=== PATIENT | male | born 1965 | race Caucasian/White ===

== ENCOUNTER 2019-10-09 08:27 | Emergency (ER) | payer BC, SELFPAY ==
[2019-10-09 08:37] VITALS: BP 161/108; PULSE 93; RESP 18; TEMP 36.2; O2SAT 100
--- NOTE | 2019-10-09 08:54 | ED.WOUNDLAC ---
HPI - Wound/Laceration General Chief Complaint: Wound/Laceration Stated Complaint: Left Wrist Laceration Time Seen by Provider: 10/09/19 08:42 History of Present Illness HPI narrative: Patient presents with his for laceration on his left forearm. A kylah jar fell and cut his lower left forearm. Bleeding is controlled. He does not remember his last tetanus shot. He says the pain is minimal. He has not been sick recently. He does not smoke cigarettes, but he does drink alcohol, and smokes marijuana. He has history of hypertension. Surgery history includes circumcision. Onset (ago): hour(s) Extremity Location: Left: arm Place: home Patient tetanus UTD: No Context: accidental Associated symptoms: none Related Data Home Medications Medication Instructions Recorded Confirmed escitalopram oxalate 10 mg tablet 10 mg PO DAILY 09/09/19 Allergies Allergy/AdvReac Type Severity Reaction Status Date / Time peanut Allergy Mild Unknown Verified 09/09/19 10:57 Review of Systems Review of Systems: Narrative: CONSTITUTIONAL: Denies fever, chills, or sweats. EYES: Denies visual changes, redness, or discharge. ENT: Denies rhinorrhea, congestion, sore throat, or otalgia. CARDIOVASCULAR: Denies chest pain, palpitations, or edema. RESPIRATORY: Denies cough or dyspnea. GASTROINTESTINAL: Denies abdominal pain, nausea, vomiting, or diarrhea. GENITOURINARY: Denies dysuria or hematuria. SKIN: Denies rash or itching. MUSCULOSKELETAL: Denies back pain, but he does have multiple joint pain. NEUROLOGIC: Denies headache, numbness, or weakness. [facility] Past Medical History Medical History (Updated 10/09/19 @ 08:57 by Coco Randle MD) Hypertension Laceration Surgical History Surgical History History of circumcision Family History Family History (Updated 09/23/15 @ 23:19 by DOCTOR UNKNOWN) Mother Family history of chronic obstructive pulmonary disease, Onset Age: 55 Family history of malignant neoplasm of breast in first degree relative, Onset Age: 55 Father Family history of type 2 diabetes mellitus, Onset Age: 55 Other Diabetes mellitus Social History Social History (Updated 10/09/19 @ 08:57 by Coco Randle MD) Smoking status: Never smoker Second hand tobacco smoke exposure: No Alcohol intake: current Substance use: current Substance use type: marijuana Living arrangements: with family Gender identity (if verbalized by the patient): Male Exam Narrative: Exam Narrative: GENERAL: Well-appearing, well-nourished, and in no acute distress. HEAD: Normocephalic, atraumatic. EYES: PERRLA and EOMI. ENT: Nares clear, no rhinorrhea or epistaxis. Mucous membranes moist. NECK: Supple. CHEST: Clear to auscultation. No respiratory distress. HEART: Regular rate and rhythm. No murmur heard. Normal peripheral pulses. ABDOMEN: Soft, nontender, nondistended, normal active bowel sounds. EXTREMITIES: Normal range of motion. No edema. Left forearm has a 2 cm curved laceration on the lower forearm. SKIN: Warm, dry, no rash. NEURO: No focal deficits. Alert and oriented x3. PSYCH: Normal mood and affect. Course Vital Signs Vital signs: Vital Signs Temperature 97.2 F L 10/09/19 08:37 Pulse Rate 93 10/09/19 08:37 Respiratory Rate 18 10/09/19 08:37 Blood Pressure 161/108 H 10/09/19 08:37 Pulse Oximetry 100 10/09/19 08:37 Temperature 97.2 F L 10/09/19 08:37 Pulse Rate 93 10/09/19 08:37 Respiratory Rate 18 10/09/19 08:37 Blood Pressure 161/108 H 10/09/19 08:37 Pulse Oximetry 100 10/09/19 08:37 Procedures Laceration Laceration 1: Date: 10/09/19 Time: 08:58 Site: upper extremity Side (If applicable): left Size (cm): 2 Description: other (Curved) Pre-repair: irrigated ====== Skin Level ====== Skin layer closed with: bhaskar (4) ====== Subcutaneous La
[2019-10-09] MEDS: TETANUS,DIPHTHERIA,AC PERTUSSIS ADULT (0.5 ML) BOOSTRIX IM (09:06)
[2019-10-09 09:13] VITALS: BP 154/92; PULSE 75; RESP 16; O2SAT 100
== END 2019-10-09 09:14 | disposition home or self-care (01) ==
PROVIDERS: Emergency Provider Emergency Medicine; PCP Physician Assistant
DX: S51.812A Laceration without foreign body of left forearm, initial encounter (principal); I10 Essential (primary) hypertension; W25.XXXA Contact with sharp glass, initial encounter; W20.8XXA Other cause of strike by thrown, projected or falling object, initial encounter; Z23 Encounter for immunization
CPT/HCPCS: 12001; 90471; 90715; 99282

== ENCOUNTER 2019-11-07 04:24 | Emergency (ER) | payer BC, SELFPAY ==
--- NOTE | ~2019-11-07 | XR_ITS ---
[[id number] ] INDICATION: Right lower rib pain after fall TECHNIQUE: Frontal projection of the upper right ribs, frontal projection of the lower right ribs, ob lique projection of all the right ribs, frontal inspiratory chest x-ray for interpretation. FINDINGS: There are nondisplaced right 10th and 11th rib fractures. There are no soft tissue abnorma lity seen. The lungs are clear. IMPRESSION: 1: Acute nondisplaced right 10th and 11th rib fractures.. Reviewed, dictated and finalized at location A.
--- NOTE | 2019-11-07 04:28 | ED.CHESTPAIN ---
HPI - Chest Pain General Chief Complaint: Unspecified Stated Complaint: rib pain Time Seen by Provider: 11/07/19 04:26 History of Present Illness HPI narrative: Fell from standing on a bench and struck his right side on a metal shelf. Had pain instantly, but was able to fall asleep. Awoke from sleep later with severe pain in the right lateral ribs. Pain with breathing, coughing, moving. He did not try anything for the pain. Related Data Home Medications Medication Instructions Recorded Confirmed escitalopram oxalate 10 mg tablet 10 mg PO DAILY 09/09/19 Allergies Allergy/AdvReac Type Severity Reaction Status Date / Time peanut Allergy Mild Unknown Verified 09/09/19 10:57 Review of Systems Review of Systems: All systems reviewed & are unremarkable except as noted in HPI and below PMFSH Past Medical History Medical History Hypertension Laceration Surgical History Surgical History History of circumcision Family History Family History Mother Family history of chronic obstructive pulmonary disease, Onset Age: 55 Family history of malignant neoplasm of breast in first degree relative, Onset Age: 55 Father Family history of type 2 diabetes mellitus, Onset Age: 55 Other Diabetes mellitus Social History Social History Smoking status: Never smoker Second hand tobacco smoke exposure: No Alcohol intake: current Substance use: current Substance use type: marijuana Gender identity (if verbalized by the patient): Male Exam Const: General: healthy appearing and alert Orientation/consciousness: patient oriented x3 Other: Obvious discomfort HENMT: Head: normal to inspection Chest: Chest palpation & inspection: tenderness rib (right inferior lateral) Resp: Effort & Inspection: normal respiratory effort Auscultation: clear to auscultation bilaterally Cardio: Rate: regular rate Rhythm: regular rhythm Skin: General skin exam: normal color Wounds: no wounds Neuro: General: patient oriented x3, moves all extremities and CN's II-XI intact bilaterally Speech: normal speech Extrem: General: normal to inspection Course Vital Signs Vital signs: Vital Signs Temperature 36.2 C L 11/07/19 04:32 Pulse Rate 78 11/07/19 04:32 Respiratory Rate 16 11/07/19 04:32 Blood Pressure 140/98 H 11/07/19 04:32 Temperature 36.2 C L 11/07/19 04:32 Pulse Rate 78 11/07/19 04:32 Respiratory Rate 16 11/07/19 04:32 Blood Pressure 140/98 H 11/07/19 04:32 MDM - Chest Pain Differential Diagnosis Differential diagnosis: Likely fracture of rib Medical Records Data Attestation: I reviewed the patient's medical records. Imaging Data Attestation: I personally reviewed and interpreted this imaging study as follows: My impression: No displaced rib fracture. Possible nondisplaced fracture Discharge Plan Discharge Clinical Impression: Rib contusion Patient Disposition: Home, Self-Care Condition: Stable Instructions: Rib Contusion (ED) Prescriptions: New hydrocodone-acetaminophen [[place]] 5-325 mg tablet 1 tablet PO Q6H PRN (Reason: pain) Qty: 10 RF: 0 ibuprofen 600 mg tablet 600 mg PO QID PRN (Reason: pain) Qty: 30 RF: 0 No Action escitalopram oxalate 10 mg tablet 10 mg PO DAILY RF: 0 losartan 50 mg tablet 50 mg PO DAILY Qty: 90 RF: 1 ibuprofen 800 mg tablet See Rx Instructions .ROUTE .COMPLEX Qty: 60 RF: 1 albuterol sulfate [ProAir HFA] 90 mcg/actuation HFA aerosol inhaler 2 puff INHALATION Q4-6H PRN (Reason: shortness of breath or wheezing) Qty: 8.5 RF: 1 Follow-up/Referrals: Magdaleno Cochran PA-C [Primary Care Provider] - Discharge Date/Time: 11/07/19 07:15
[2019-11-07 04:32] VITALS: BP 140/98; PULSE 78; RESP 16; TEMP 36.2
[2019-11-07] MEDS: KETOROLAC (*BKC) 60 MG/2 ML VIAL IM (05:06)
== END 2019-11-07 07:15 | disposition home or self-care (01) ==
PROVIDERS: Emergency Provider Emergency Medicine; PCP Physician Assistant
DX: S20.211A Contusion of right front wall of thorax, initial encounter (principal); W17.89XA Other fall from one level to another, initial encounter; I10 Essential (primary) hypertension
CPT/HCPCS: 71101; 96372; 99283; A9270; J1885

== ENCOUNTER 2020-09-06 08:56 | Outpatient (CLI) | payer BC, SELFPAY ==
--- NOTE | 2020-09-06 11:00 | NEURO_ITS ---
Impression: # Complains of pain in right hand. # No Carpal Tunnel Syndrome or ulnar neuropathy. # Normal needle/EMG exam including deltoid, triceps and biceps. # Clinical correlation recommended. Nerve Conduction Studies Anti Sensory Summary Table Stim Site NR Peak (ms) P-T Amp (?V) Site1 Site2 Delta-P (ms) Dist (cm) Marco A (m/s) Left Median Anti Sensory (2-3nd Digit) Wrist 3.8 28.2 Wrist 2-3nd Digit 3.8 14.0 37 Wrist 3.7 34.4 Wrist 2-3nd Digit 3.8 14.0 37 Right Median Anti Sensory (2-3nd Digit) Wrist 3.5 34.4 Wrist 2-3nd Digit 3.5 14.0 40 Wrist 3.5 34.4 Wrist 2-3nd Digit 3.5 14.0 40 Left Radial Anti Sensory (Base 1st Digit) Wrist 2.4 16.3 Wrist Base 1st Digit 2.4 0.0 Right Radial Anti Sensory (Base 1st Digit) Wrist 2.5 12.2 Wrist Base 1st Digit 2.5 0.0 Left Ulnar Anti Sensory (5th Digit) Wrist 2.9 50.2 Wrist 5th Digit 2.9 14.0 48 Right Ulnar Anti Sensory (5th Digit) Wrist 3.2 12.6 Wrist 5th Digit 3.2 14.0 44 Motor Summary Table Stim Site NR Onset (ms) O-P Amp (mV) Site1 Site2 Delta-0 (ms) Dist (cm) Marco A (m/s) Left Median Motor (Abd Poll Brev) Wrist 3.7 4.6 Elbow Wrist 5.4 28.0 52 Elbow 9.1 6.1 Right Median Motor (Abd Poll Brev) Wrist 3.7 2.5 Elbow Wrist 5.4 28.0 52 Elbow 9.1 4.6 Left Ulnar Motor (Abd Dig Minimi) Wrist 2.5 4.0 A Elbow Wrist 5.2 28.0 54 A Elbow 7.7 3.2 Right Ulnar Motor (Abd Dig Minimi) Wrist 2.8 4.5 A Elbow Wrist 5.2 29.0 56 A Elbow 8.0 3.3 F Wave Studies NR F-Lat (ms) L-R F-Lat (ms) Left Median (Mrkrs) (Abd Poll Brev) 30.98 0.32 Right Median (Mrkrs) (Abd Poll Brev) 30.67 0.32 Left Ulnar (Mrkrs) (Abd Dig Min) 30.61 0.33 Right Ulnar (Mrkrs) (Abd Dig Min) 30.28 0.33 EMG Side Muscle Nerve Root Ins Act Fibs Amp Dur Recrt Comment Right 1stDorInt Ulnar C8-T1 Nml Nml Nml Nml Nml Right Ext Indicis Radial (Post Int) C7-8 Nml Nml Nml Nml Nml Right Ext Digitorum Radial (Post Int) C7-8 Nml Nml Nml Nml Nml Right BrachioRad Radial C5-6 Nml Nml Nml Nml Nml Right PronatorTeres Median C6-7 Nml Nml Nml Nml Nml Right Abd Poll Brev Median C8-T1 Nml Nml Nml Nml Nml Left 1stDorInt Ulnar C8-T1 Nml Nml Nml Nml Nml Left Ext Indicis Radial (Post Int) C7-8 Nml Nml Nml Nml Nml Left Ext Digitorum Radial (Post Int) C7-8 Nml Nml Nml Nml Nml Left BrachioRad Radial C5-6 Nml Nml Nml Nml Nml Left PronatorTeres Median C6-7 Nml Nml Nml Nml Nml Left Abd Poll Brev Median C8-T1 Nml Nml Nml Nml Nml Right Biceps Musculocut C5-6 Nml Nml Nml Nml Nml Right Triceps Radial C6-7-8 Nml Nml Nml Nml Nml Right Deltoid Axillary C5-6 Nml Nml Nml Nml Nml Left Biceps Musculocut C5-6 Nml Nml Nml Nml Nml Left Triceps Radial C6-7-8 Nml Nml Nml Nml Nml Left Deltoid Axillary C5-6 Nml Nml Nml Nml Nml MTDD
== END 2020-09-06 08:57 | disposition home or self-care (01) ==
LOC: ANHNEURO 08:57
PROVIDERS: PCP Internal Medicine; Visit Provider Physician Assistant
DX: M79.641 Pain in right hand (principal); M79.642 Pain in left hand
CPT/HCPCS: 95886; 95911

== ENCOUNTER 2021-04-10 08:13 | Outpatient (CLI) | payer BC, SELFPAY | END 2021-04-10 08:14 | disposition home or self-care (01) | PROVIDERS: PCP Physician Assistant; Visit Provider Physician Assistant | DX: H90.6 Mixed conductive and sensorineural hearing loss, bilateral (principal) | CPT/HCPCS: 92557; 92567 ==

== ENCOUNTER 2021-12-01 00:23 | Day surgery (SDC) | payer BC, SELFPAY ==
[2021-11-15 11:09] VITALS: BMI 21.2
[2021-12-01 07:37] VITALS: BP 138/88; PULSE 81; RESP 20; TEMP 36.6; O2SAT 100; BMI 19.8
[2021-12-01] MEDS: LACTATED RINGERS 1,000 ML 150 ML IV CONT (07:51)
--- NOTE | 2021-12-01 08:03 | WPDANESEPPF ---
Anes - Initial Pre Proc Eval Procedure: Operation Date: 12/01/21 08:30 Proposed Procedures p Screening Colonoscopy - Wyatt Field MD Date/Time: 12/01/21 08:03 Surgeon: Wyatt Field MD Pre Op Diagnosis: neoplasm screening Patient Data Age: 56 Gender: M Height: 1.7 m Weight: 57.4 kg Last Vital Signs Temp 97.9 F 12/01/21 07:37 Pulse 81 12/01/21 07:37 Resp 20 12/01/21 07:37 BP 138/88 12/01/21 07:37 Pulse Ox 100 12/01/21 07:37 O2 Del Method Room Air 12/01/21 07:37 Allergies Allergy/AdvReac Type Severity Reaction Status Date / Time peanut Allergy Mild Unknown Verified 12/01/21 07:36 Home Medications Medication Instructions Recorded Confirmed Type ibuprofen 800 mg tablet 800 mg PO BID PRN pain #180 tabs 09/01/21 11/15/21 Rx losartan 50 mg tablet 50 mg PO DAILY #90 tabs 09/01/21 11/15/21 Rx escitalopram oxalate 10 mg tablet 10 mg PO DAILY #90 tabs 10/20/21 11/15/21 Rx Patient hx anesthesia problems: none Family hx anesthesia problems: none Results Review: All pre-operative results and documents have been reviewed as part of the pre-operative evaluation. [facility] Past Medical History Medical History (Updated 10/20/21 @ 10:32 by Magdaleno Cochran PA-C) Hypertension Laceration Rib pain Surgical History Surgical History History of circumcision Family History Family History Mother Family history of chronic obstructive pulmonary disease, Onset Age: 55 Family history of malignant neoplasm of breast in first degree relative, Onset Age: 55 Father Family history of type 2 diabetes mellitus, Onset Age: 55 Other Diabetes mellitus Social History Social History Smoking status: Never smoker Second hand tobacco smoke exposure: No Alcohol intake: former Alcohol use details: quit 11/2019 Substance use: current Substance use type: does not use Living arrangements: with family Gender identity (if verbalized by the patient): Male Spiritual care concerns: No Anes - Eval Final PreProcedure Day of Procedure 12/01/21 08:03 Patient weight: normal Heart: regular rate and rhythm Lungs: clear to auscultation Airway: Mallampati scale class II Neurological: alert and oriented Last oral intake: >/= 8 hours ASA classification: II Emergent: no Anesthetic plan: proceed Anesthesia type and monitoring: general GIVS and standard monitoring Results Review: All pre-operative results and documents have been reviewed as part of the pre-operative evaluation. Informed Consent: The patient's anesthetic plan and its attendant risks and benefits were discussed with the patient/family/POA. Questions were solicited and answers provided to the satisfaction of the patient/family/POA.
--- NOTE | 2021-12-01 08:16 | PM.HPGS ---
History of Present Illness History of Present Illness Consent: Risks, benefits, and alternatives have been discussed and questions answered. Patient agrees to proceed with procedure. Chief complaint: neoplasm screening Narrative: Edgard Vickers is a 56 year old male Referred for colon cancer screening. Review of Systems Review of Systems: All systems reviewed & are unremarkable except as noted in HPI and below PMFSH Past Medical History Medical History Hypertension Laceration Rib pain Surgical History Surgical History History of circumcision Family History Family History Mother Family history of chronic obstructive pulmonary disease, Onset Age: 55 Family history of malignant neoplasm of breast in first degree relative, Onset Age: 55 Father Family history of type 2 diabetes mellitus, Onset Age: 55 Other Diabetes mellitus Social History Social History Smoking status: Never smoker Second hand tobacco smoke exposure: No Alcohol intake: former Alcohol use details: quit 11/2019 Substance use: current Substance use type: does not use Living arrangements: with family Gender identity (if verbalized by the patient): Male Spiritual care concerns: No Meds Home Medications and Allergies Home Medications Medication Instructions Recorded Confirmed Type ibuprofen 800 mg tablet 800 mg PO BID PRN pain #180 tabs 09/01/21 11/15/21 Rx losartan 50 mg tablet 50 mg PO DAILY #90 tabs 09/01/21 11/15/21 Rx escitalopram oxalate 10 mg tablet 10 mg PO DAILY #90 tabs 10/20/21 11/15/21 Rx Allergies Allergy/AdvReac Type Severity Reaction Status Date / Time peanut Allergy Mild Unknown Verified 12/01/21 07:36 Vital Signs Vital Signs - 24 hr 12/01/21 07:37 Temperature 36.6 C Pulse Rate 81 Respiratory Rate 20 Blood Pressure 138/88 Pulse Oximetry 100 Oxygen Delivery Room Air Exam Const: General: alert Orientation/consciousness: patient oriented x3 Resp: Auscultation: clear to auscultation bilaterally Cardio: Rhythm: regular rhythm GI: GI Palp: Yes Soft to palpation and No Tenderness to palpation present (GI) Neuro: General: patient oriented x3 Assessment and Plan Assessment and plan (1) Screening for colorectal cancer: Code(s): Z12.11 - Encounter for screening for malignant neoplasm of colon; Z12.12 - Encounter for screening for malignant neoplasm of rectum Status: Acute Assessment and Plan: Colonoscopy with possible biopsy or polypectomy or cautery or injection of substances.
[2021-12-01] MEDS: SIMETHICONE ORAL SUSPENSION 20 MG/0.3 ML 30 ML BOTTLE 0.6 ML IRRIGATION (08:27)
[2021-12-01 08:33] VITALS: BP 112/76; PULSE 76; RESP 20; O2SAT 98
[2021-12-01 08:43] VITALS: BP 117/85; PULSE 67; RESP 20; O2SAT 100
[2021-12-01 08:52] VITALS: BP 135/83; PULSE 75; RESP 20; O2SAT 100
== END 2021-12-01 08:58 | disposition home or self-care (01) ==
PROVIDERS: PCP Physician Assistant; Visit Provider Internal Medicine Gastroenterology
PROC: 0DJD8ZZ Inspection of Lower Intestinal Tract, Via Natural or Artificial Opening Endoscopic (ICD-10-PCS; CPT 45378; principal; 2021-12-01 08:30)
DX: Z12.11 Encounter for screening for malignant neoplasm of colon (principal); K64.8 Other hemorrhoids; K57.30 Diverticulosis of large intestine without perforation or abscess without bleeding; I10 Essential (primary) hypertension; R07.81 Pleurodynia; Z87.891 Personal history of nicotine dependence
CPT/HCPCS: 45378; J2704; J7120

== ENCOUNTER 2023-09-09 10:53 | Outpatient (CLI) | payer BC, SELFPAY ==
--- NOTE | 2023-09-09 11:03 | ECG_ITS ---
Test Date: 2023-09-09 11:10:56 Measurements Intervals [place] Rate: 59 P: 34 IN: 129 QRS: 25 QRSD: 95 T: 21 QT: 417 QTc: 415 Interpretive Statements SINUS BRADYCARDIA VOLTAGE CRITERIA FOR LVH BORDERLINE ECG No previous ECG available for comparison Electronically Signed On 09-09-2023 11:14:34 CDT by Jhonny Engel D.O.
== END 2023-09-09 10:54 | disposition home or self-care (01) ==
LOC: ANHIMG 10:55 → ANHCARD 10:57
PROVIDERS: PCP Internal Medicine; Visit Provider Internal Medicine
DX: R07.9 Chest pain, unspecified (principal); R00.1 Bradycardia, unspecified
CPT/HCPCS: 93005

== ENCOUNTER 2023-09-25 07:34 | Outpatient (CLI) | payer BC, SELFPAY ==
--- NOTE | 2023-09-25 07:38 | EST_ITS ---
Patient Info Name: Edgard Vickers Age: 58 years : 1965 Gender: Male Ht: 67 in Wt: 132 lbs BSA: 1.68 m2 HR: 64 bpm BP: 152 / 99 mmHg Heart Rhythm: Sinus Rhythm Exam Date: 09/25/2023 7:49 AM Exam Location: Echo Lab Patient Status: Outpatient Admit Date: 09/25/2023 Staff Ordering Physician: Stanislav Wolf DO [employer] Compounder: Elizabeth Silva RDCS Attending Provider: DR. STEELE Referring Physician: Maryann GUY; Exercise Technologist: Elizabeth Silva RDCS Exercise Physician: Jhonny Steele DO Exam Type: CA stress echo Study Info Indications R07.9 - Chest pain, unspecified Treadmill exercise stress echocardiogram is performed. Summary 1. 1. Negative Roosevelt exercise stress test for ischemic ST changes by ECG criteria. 2. 2. Good functional capacity, achieving 12 METs of workload. 3. 3. Baseline hypertension. 4. 4. Appropriate HR response to exercise. 5. 5. Appropriate HR recovery at 1 minute post exercise. 6. 6. Negative stress echocardiogram for ischemia by wall motion analysis. 7. 7. Patient informed of the above results. Stress Echo Findings Left Ventricle Appropriate increase in LV endocardial thickening with systole. Appropriate augmentation of contractility with systole. No wall motion abnormality. Left Ventricle Normal LV systolic function, no wall motion abnormality. Protocol: Roosevelt Stress ECG Details Stage: REST Duration (min): 2 min : 0 sec Speed (mph): 0.0 Grade (%): 0 HR (bpm): 64 SBP (mmHg): 152 DBP (mmHg): 99 METS: --- Stage: REST Duration (min): 10 min : 28 sec Speed (mph): 0.0 Grade (%): 0 HR (bpm): 70 SBP (mmHg): 152 DBP (mmHg): 99 METS: --- Stage: STAGE 1 Duration (min): 1 min : 0 sec Speed (mph): 1.7 Grade (%): 10 HR (bpm): 92 SBP (mmHg): 152 DBP (mmHg): 99 METS: --- Stage: STAGE 1 Duration (min): 2 min : 0 sec Speed (mph): 1.7 Grade (%): 10 HR (bpm): 90 SBP (mmHg): 152 DBP (mmHg): 99 METS: --- Stage: STAGE 1 Duration (min): 3 min : 0 sec Speed (mph): 1.7 Grade (%): 10 HR (bpm): 91 SBP (mmHg): 174 DBP (mmHg): 110 METS: --- Stage: STAGE 2 Duration (min): 1 min : 0 sec Speed (mph): 2.5 Grade (%): 12 HR (bpm): 101 SBP (mmHg): 174 DBP (mmHg): 110 METS: --- Stage: STAGE 2 Duration (min): 2 min : 0 sec Speed (mph): 2.5 Grade (%): 12 HR (bpm): 103 SBP (mmHg): 189 DBP (mmHg): 105 METS: --- Stage: STAGE 2 Duration (min): 3 min : 0 sec Speed (mph): 2.5 Grade (%): 12 HR (bpm): 110 SBP (mmHg): 189 DBP (mmHg): 105 METS: --- Stage: STAGE 3 Duration (min): 1 min : 0 sec Speed (mph): 3.4 Grade (%): 14 HR (bpm): 122 SBP (mmHg): 199 DBP (mmHg): 107 METS: --- Stage: STAGE 3 Duration (min): 2 min : 0 sec Speed (mph): 3.4 Grade (%): 14 HR (bpm): 121 SBP (mmHg): 199 DBP (mmHg): 107 METS: --- Stage: STAGE 3 Duration (min): 3 min : 0 sec Speed (mph): 3.4 Grade (%): 14 HR (bpm): 125 SBP (mmHg): 189 DBP (mmHg):
[2023-09-25 07:54] LABS: Basophils Absolute Auto 0.1 K/mm3 (0.0-0.1); Basophils Percent Auto 1.1 % (0.2-1.2); Eosinophils Absolute Auto 0.2 K/mm3 (0-0.3); Eosinophils Percent Auto 3.9 % (0-4.4); Hematocrit 45.4 % (42.0-52.0); Hemoglobin 15.3 g/dL (14.0-18.0); Lymphocytes Absolute Auto 1.32 K/mm3 (0.9-3.2); Lymphocytes Percent Auto 28.3 % (18.3-44.2); Mean Corpuscular HGB Conc 33.7 g/dl (32-36); Mean Corpuscular Hemoglobin 29.7 pg (26-34); Mean Corpuscular Volume 88.2 fl (80-100); Monocytes Absolute Auto 0.5 K/mm3 (0.1-0.6); Monocytes Percent Auto 10.9 % (2.6-8.5); Neutrophils Absolute Auto 2.6 K/mm3 (1.3-6.7); Neutrophils Percent Auto 55.8 % (45.5-73.1); Platelet Count Result 242 k/mm3 (150-375); Red Blood Count 5.15 M/mm3 (4.6-6.20); Red Cell Distribution Width 12.2 % (11.5-14.5); White Blood Count 4.7 K/mm3 (4.5-10.0)
[2023-09-25 08:10] LABS: Alanine Aminotransferase 18 U/L (6-50); Albumin Level 4.4 g/dL (3.5-5.1); Alkaline Phosphatase 51 U/L (38-126); Anion Gap 8 mmol/L (4-12); Aspartate Amino Transferase 24 U/L (17-59); Blood Urea Nitrogen 8 mg/dL (9-20); Calcium 9.2 mg/dL (8.4-10.2); Carbon Dioxide 32 mmol/L (22-30); Chloride 99 mmol/L (98-107); Cholesterol 201 mg/dL (0-200); Estimated Glomerular Filt Rate > 60; Glucose 97 mg/dL (65-110); HDL Direct 50 mg/dL; Potassium 4.1 mmol/L (3.4-5.0); Sodium 139 mmol/L (137-145); Triglycerides 159 mg/dL (<150)
[2023-09-25 08:21] LABS: LDL Cholesterol Direct 109 mg/dL
[2023-09-25 08:39] LABS: Prostate Specific Antigen 0.4 ng/mL (< OR = 4.0)
== END 2023-09-25 07:35 | disposition home or self-care (01) ==
LOC: ANHCARD 07:35
PROVIDERS: PCP Internal Medicine; Visit Provider Internal Medicine
DX: Z00.00 Encounter for general adult medical examination without abnormal findings (principal); R07.9 Chest pain, unspecified; Z12.5 Encounter for screening for malignant neoplasm of prostate
CPT/HCPCS: 36415; 80053; 80061; 84153; 84443; 85025; 93351; G0103

== ENCOUNTER 2023-11-28 14:57 | Outpatient (CLI) | payer BC, SELFPAY ==
--- NOTE | ~2023-11-28 | US_ITS ---
LEFT LOWER EXTREMITY VENOUS ULTRASOUND Ordering provider: Stanislav Wolf DO History: . M79.89 - Other specified soft tissue disorders . Comparison: None. FINDINGS: --COMMON FEMORAL: Patent and free of thrombus. Normal compressibility, phasic flow and augmentation. --PROXIMAL SUPERFICIAL FEMORAL: Patent and free of thrombus. Normal compressibility, phasic flow and augmentation. --DISTAL SUPERFICIAL FEMORAL: Patent and free of thrombus. Normal compressibility, phasic flow and au gmentation. --POPLITEAL: Patent and free of thrombus. Normal compressibility, phasic flow and augmentation. --POSTERIOR TIBIAL: Patent and free of thrombus. Normal compressibility, phasic flow and augmentation . IMPRESSION: Negative left lower extremity venous US. No deep vein thrombosis. Reviewed, dictated and finalized at location A.
== END 2023-11-28 14:58 | disposition home or self-care (01) ==
LOC: MICIMG 14:58
PROVIDERS: PCP Internal Medicine; Visit Provider Internal Medicine
DX: M79.89 Other specified soft tissue disorders (principal)
CPT/HCPCS: 93971

== ENCOUNTER 2024-03-24 13:39 | Outpatient (CLI) | payer BC, SELFPAY ==
--- NOTE | ~2024-03-24 | XR_ITS ---
XR shoulder LT min 2V 03/24/2024 13:57 INDICATION: Left shoulder pain PROCEDURE: 5 views left shoulder COMPARISON: No prior studies for comparison. FINDINGS: Fracture, dislocation or subluxation is not identified. The soft tissues appear within norm al limits. No foreign bodies are identified. IMPRESSION: 1: NO ACUTE BONE OR JOINT ABNORMALITY IDENTIFIED. Reviewed, dictated and finalized at location A. LSMITH
--- OUTSIDE RECORDS SUMMARY | 2024-03-24 14:17 | XMS_ITS | Clinical Summary ---
Author Organization [facility] Address [address] [place] [id number] Phone Care Team Providers Care Photovoltaic Testing Technician Name Role Phone Unavailable Primary Care Provider Unavailabl e Medications No known medications Social History Tobacco Use Types Packs/Day Years Used Date Smoking Tobacco: Never Smokeless Tobacco: Never Alcohol Use Standard Drinks/Week Comments Never 0 (1 standard drink = 0.6 oz pur e alcohol) Feeling Safe Answer Date Recorded Within the last year, have y ou been afraid of your partner or ex-partner? Patient declined 02/13/2019 Within the last year, have y ou been humiliated or emotionally abused in other ways by your partner or ex-partner? Patient declined 02/13/2019 Within the last year, have y ou been kicked, hit, slapped, or otherwise physically hurt by your partner or ex-partner? Patient declined 02/13/2019 Within the last year, have y ou been raped or forced to have any kind of sexual activity by your partner or ex-partner? Patient declined 02/13/2019 Social Connections Answer Date Recorded In a typical week, how many times do you talk on the phone with family, friends, or neighbors? Patient declined 02/13/2019 How often do you get togethe r with friends or relatives? Patient declined 02/13/2019 How often do you attend adventist or scientologist serv ices? Patient declined 02/13/2019 Do you belong to any clubs o r organizations such as adventist groups, unions, fraternal or athletic groups, or school groups? Patient declined 02/13/2019 How often do you attend meet ings of the clubs or organizations you belong to? Patient declined 02/13/2019 Are you , , di vorced, , never , or living with a partner? Patient declined 02/13/2019 Financial Resource Strain Answer Date R ecorded How hard is it for you to pa y for the very basics like food, housing, medical care, and heating? Not hard at all 02/13/2019 Food Insecurity Answer Date Recorded Within the past 12 months, y ou worried that your food would run out before you got the money to buy more. Never true 02/14/20 19 Within the past 12 months, t he food you bought just didn't last and you didn't have money to get more. Never true 02/13/2019 Transportation Needs Answer Date Record ed In the past 12 months, has l ack of transportation kept you from medical appointments or from getting medications? No 01/26 In the past 12 months, has l ack of transportation kept you from meetings, work, or from getting things needed for daily living? No 02/13/2019 Sex and Gender Information Value Date Recorded Sex Assigned at Not on file Legal Sex Male 9:57 AM CDT Gender Identity Not on file Sexual Orientation Not on file Last Filed Vital Signs Vital Sign Reading Time Taken Comments Blood Pressure 138/79 02/13/2019 12:53 AM SHERIFF OFFICER Pulse 69 02/13/2019 12:53 AM SHERIFF OFFICER Temperature 36.7 ??C (98 ??F) 02/13/2019 12:53 AM SHERIFF OFFICER Respiratory Rate 14 02/13/2019 12:53 AM SHERIFF OFFICER Oxygen Saturation 97% 02/13/2019 12:53 AM SHERIFF OFFICER Inhaled Oxygen Concentration - - Weight 74.8 kg (165 lb) 02/13/2019 12:53 AM SHERIFF OFFICER Height 180.3 cm (5' 11 ) 02/13/2019 12:53 AM SHERIFF OFFICER Body Mass Index 23.01 02/13/2019 12:53 AM SHERIFF OFFICER Plan of Treatment Health Maintenance Due Date Last Done Comments DTAP/TDAP/TD VACCINES (1 - Tdap) 1986 HEPATITIS B VACCINES (1 of 3 - 19+ 3-dose series) 1986 COLORECTAL SCREENING 2012 Colorectal Cancer Screening 2012 FIT-DNA Q 3 years 2012 FIT/FOBT Q 1 year 2012 Flex Sig/CT Colonography Q 5 years 2012 ZOSTER VACCINE (1 of 2) 2017 INFLUENZA VACCINE (#1) 2023 PNEUMOCOCCAL VACCINE 0-64 YEARS Aged Out No longer eligible based on patient's age to complete this topic
--- OUTSIDE RECORDS SUMMARY | 2024-03-24 14:17 | XMS_ITS | Referral Summary ---
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 Monthly or less 04/27/2021 Average Number of Drinks Not on file 022 Frequency of Binge Drinking Not on file 04/2021 Personal Safety Answer Date Recorded Getting School Help Needed Not on file 02/27 Sex and Gender Information Value Date Recorded Sex Assigned at Not on file Legal Sex Male 2:03 PM [employer] Gender Identity Not on file Sexual Orientation Not on file Plan of Treatment Not on file Insurance [employer] [place] [employer] [facility] Care Teams Grain Manager Relationship Specialty Start Date End Date Mick Reddy MD [address] [facility] [address] [place], [place] [phone] PCP - General Internal Medicine 04/27/21
--- OUTSIDE RECORDS SUMMARY | 2024-03-24 14:17 | XMS_ITS | Clinical Summary ---
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 Gender Identity Not on file Sexual Orientation Not on file Obstetrics History Plan of Treatment Health Maintenance Due Date Last Done Comments Colon Cancer Screening-Colonoscopy 1967 Depression Screening 1967 Hepatitis C Screening 1967 Prostate Cancer Screening-PSA 1967 Pneumococcal vaccine <65 (1 of 2 - PCV) 1973 Hepatitis B Screening 1985 Regular Well Visit/Exam 18-64 1985 Zoster Vaccine (1 of 2) 2017 Covid-19 Vaccine (3 - 2024-25 season) 10/27/202310/2020, 06/05/2020 Influenza Vaccine (#1) 2023 DTaP/Tdap/Td Vaccine (2 - Td or Tdap) 10/08/2029 [place] Care Teams Card Puncher Relationship Specialty Start Date End Date Mick Reddy MD [address] [address] PCP - General Internal Medicine 04/27/21
== END 2024-03-24 13:40 | disposition home or self-care (01) ==
PROVIDERS: PCP Internal Medicine; Visit Provider Internal Medicine
DX: M25.512 Pain in left shoulder (principal)
CPT/HCPCS: 73030

== ENCOUNTER 2024-06-02 16:22 | Emergency (ER) | payer BC, SELFPAY ==
--- NOTE | ~2024-06-02 | CT_ITS ---
History: Headache and hypertension PROCEDURE: CT head without contrast. COMPARISON: 11/11/2027 TECHNIQUE: Axial imaging of the head performed from the skull base to the vertex without IV contrast. Sagittal a nd coronal reformations obtained. DLP: 681 mGy-cm FINDINGS: The ventricles are normal in size, shape and position. There is no mass, mass effect or midline shift. There is no abnormal extra-axial fluid collection or intracranial hemorrhage. 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 Remaining visualized paranasal sinuses are otherwise clear. Deviation of the nasal septum to the patient's left, with a prominent nasal spur. No acute displaced fractures within the overlying cranium. Impression: No acute intracranial hemorrhage or suspicious mass effect. Reviewed, dictated and finalized at location A. Impression: No acute intracranial hemorrhage or suspicious mass effect.
--- NOTE | ~2024-06-02 | XR_ITS ---
CHEST RADIOGRAPH, PA AND LATERAL CLINICAL HISTORY: chest pain . COMPARISON: 11/07/2019 TECHNIQUE: PA and lateral views of the chest. FINDINGS The cardiomediastinal silhouette is unremarkable. The lungs are clear. Visualized osseous structures and soft tissues are unremarkable. IMPRESSION: No focal infiltrate or effusion. Reviewed, dictated and finalized at location A.
--- NOTE | 2024-06-02 16:24 | ECG_ITS ---
Test Date: 2024-06-02 16:29:09 Measurements Intervals [place] Rate: 87 P: -90 VA: 92 QRS: 27 QRSD: 94 T: 33 QT: 371 QTc: 448 Interpretive Statements ECTOPIC ATRIAL RHYTHM VOLTAGE CRITERIA FOR LVH ABNORMAL ECG Compared to ECG 09/09/2023 11:10:56 SINUS RHYTHM NO LONGER PRESENT Electronically Signed On 06-02-2024 17:50:18 CDT by Jhonny Engel D.O.
[2024-06-02 16:26] VITALS: BP 163/105; PULSE 88; RESP 18; TEMP 36.3; O2SAT 97
[2024-06-02 16:42] LABS: Basophils Absolute Auto 0.1 K/mm3 (0.0-0.1); Basophils Percent Auto 1.5 % (0.2-1.2); Eosinophils Absolute Auto 0.2 K/mm3 (0-0.3); Eosinophils Percent Auto 3.1 % (0-4.4); Hematocrit 42.7 % (42.0-52.0); Hemoglobin 14.1 g/dL (14.0-18.0); Immature Granulocyte Absolute 0.01 K/mm3 (0.00-0.031); Immature Granulocyte Percent A 0.2 % (0-0.5); Lymphocytes Absolute Auto 1.77 K/mm3 (0.9-3.2); Lymphocytes Percent Auto 32.7 % (18.3-44.2); Mean Corpuscular Hemoglobin 29.3 pg (26-34); Mean Corpuscular Volume 88.6 fl (80-100); Mean Platelet Volume 10.2 fl (7.4-10.4); Monocytes Absolute Auto 0.5 K/mm3 (0.1-0.6); Monocytes Percent Auto 8.3 % (2.6-8.5); Neutrophils Absolute Auto 2.9 K/mm3 (1.3-6.7); Neutrophils Percent Auto 54.2 % (45.5-73.1); Platelet Count Result 242 k/mm3 (150-375); Red Blood Count 4.82 M/mm3 (4.6-6.20); Red Cell Distribution Width 12.5 % (11.5-14.5); White Blood Count 5.4 K/mm3 (4.5-10.0)
[2024-06-02 16:52] LABS: Alanine Aminotransferase 30 U/L (6-50); Albumin Level 4.4 g/dL (3.5-5.1); Alkaline Phosphatase 48 U/L (38-126); Anion Gap 8 mmol/L (4-12); Aspartate Amino Transferase 29 U/L (17-59); Bilirubin,Total 0.6 mg/dL (0.2-1.3); Blood Urea Nitrogen 13 mg/dL (9-20); Calcium 8.7 mg/dL (8.4-10.2); Carbon Dioxide 28 mmol/L (22-30); Chloride 102 mmol/L (98-107); Estimated CRCL calculation 66 ml/min; Estimated Glomerular Filt Rate > 60; Glucose 89 mg/dL (65-110); Lipase 217 U/L (23-300); Potassium 3.7 mmol/L (3.4-5.0); Sodium 138 mmol/L (137-145)
[2024-06-02 16:53] LABS: Prothrombin Time 13.6 Seconds (11.1-14.7)
--- NOTE | 2024-06-02 16:54 | ED.CHESTPAIN ---
HPI - Chest Pain General Chief Complaint: Chest Pain <Darlyn Ramirez PA-C - Last Filed: 06/05/24 18:01> Stated Complaint: HTN <Darlyn Ramirez PA-C - Last Filed: 06/05/24 18:01> Time Seen by Provider: 06/02/24 16:54 <Darlyn Ramirez PA-C - Last Filed: 06/05/24 18:01> Focused HPI: This is a 59 year old male that presents to the ER for elevated blood pressure. Reports shakiness, chest pain, back pain, blurred vision, headache. Ongoing over the last couple of days. He took his blood pressure today and it was elevated which prompted him to be seen. No known history of hypertension GENERAL: Well-appearing, well-nourished, and in no acute distress. HEAD: Normocephalic, atraumatic. CHEST: Clear to auscultation. ?No respiratory distress. HEART: Regular rate and rhythm.? NEURO: ?Alert and oriented x3. Patient screened in triage and initial orders placed.? ?Additional care and disposition to be based upon?diagnostic testing and treatment. <Darlyn Ramirez PA-C - Last Filed: 06/05/24 18:01> History of Present Illness HPI narrative: HPI as above in MSE. The patient states these symptoms have been intermittently occurring for the past week. The only change he is aware of is starting diclofenac for arthritic pain. He describes the chest pain as sharp, located at the lateral border of the left pectoral without radiation. He has no other complaints at this time and states that he is feeling improved. <Nash Peñaloza MD - Last Filed: 06/03/24 21:46> Related Data Allergies/Adverse Reactions: Allergies Allergy/AdvReac Type Severity Reaction Status Date / Time peanut Allergy Mild Unknown Verified 03/24/24 10:33 <Darlyn Ramirez PA-C - Last Filed: 06/05/24 18:01> Review of Systems Review of Systems: All systems reviewed & are unremarkable except as noted in HPI and below <Nash Peñaloza MD - Last Filed: 06/03/24 21:46> PMFSH Past Medical History Medical History: Medical History Body mass index (BMI) less than 20 Screening for prostate cancer Wheezing Weight loss Sciatica of left side Pain in unspecified knee Pain in unspecified elbow Pain in finger of right hand Mass of left elbow Lymphadenopathy Left hand pain Lateral epicondylitis of left elbow Impacted cerumen of left ear Essential (primary) hypertension Colon cancer screening Anxiety Acute sinusitis, unspecified Acute pain of left shoulder Abnormal urinary stream Rib pain Hypertension Laceration <Darlyn Ramirez PA-C - Last Filed: 06/05/24 18:01> Surgical History Surgical History: Surgical History History of circumcision <Darlyn Ramirez PA-C - Last Filed: 06/05/24 18:01> Family History Family History: Family History Mother Family history of chronic obstructive pulmonary disease, Onset Age: 55 Family history of malignant neoplasm of breast in first degree relative, Onset Age: 55 Breast cancer Father Family history of type 2 diabetes mellitus, Onset Age: 55 CHF (congestive heart failure) Sibling , CHF Acute myocardial infarction Other Diabetes mellitus <Darlyn Ramirez PA-C - Last Filed: 06/05/24 18:01> Social History Social History: Social History Smoking status: Never smoker Second hand tobacco smoke exposure: No Alcohol intake: former Alcohol use details: quit 11/2019 Substance use: current Substance use type: marijuana Do You Feel Safe in your Home?: Yes Lack of Transportation: No Lack of Food: Never True Current Housing: I Have Housing Concerned About Future Housing: No Difficulty Paying Gas/Electric Bills: Decline to Answer Difficulty Paying for Meds: Decline to Answer Currently Unemployed: No Education: Decline to Answer Difficulty w/ Childcare or Family Care: No Living arrangements: with family Occupation/Education: occupation Additional occupation/education comments: [place] Gender identity (if verbalized by the patient): Male Spiritual care concerns: No <WON Waite Last Filed: 06/05/24 18:01> Exam Narrative: GENERAL: Well-developed, well-nourished, in no acute distress HEAD: Normocephalic, atraumatic EYES: PERRLA and EOMI CHEST: Clear to auscultation. No respiratory distress. No wheezes, rales or rhonchi. No reproducible pain with palpation. HEART: Regular rate and rhythm. No murmur heard. normal peripheral pulses. ABDOMEN: Soft, nontender, nondistended, normoactive bowel sounds. EXTREMITIES: Normal range of motion. No edema. SKIN: Warm, dry, no rash. NEURO: No focal deficits. Alert and oriented x3. PSYCH: Normal mood and affect. <Nash Peñaloza MD - Last Filed: 06/03/24 21:46> Course Course Emergency Course: 20:35 - After medication review, anticipated side effects of diclofenac include headaches and elevated blood pressure. Given the onset of his symptoms after starting the medication, I suspect this is the cause. Troponin negative x2. EKG demonstrates LVH but is not concerning for ischemia. Heart score 3. The patient had a negative stress echo in September 2023 that also demonstrated LVH without signs of ischemia or wall motion abnormality. I do not suspect ACS. The patient's blood pressure improved without intervention. We briefly discussed staring an antihypertensive, however his blood pressure reached 135/94 on its own. I advised the patient to stop the diclofenac and follow up with his primary care doctor. We discussed return and emergency precautions including signs/symptoms of ACS and respiratory distress. The patient voiced understanding and is comfortable with the plan. All questions answered to his satisfaction. <Nash Peñaloza MD - Last Filed: 06/03/24 21:46> Vital Signs Vital signs: Vital Signs Temperature 97.3 F L 06/02/24 16:26 Pulse Rate 88 06/02/24 16:26 Respiratory Rate 18 06/02/24 16:26 Blood Pressure 163/105 H 06/02/24 16:26 Pulse Oximetry 97 06/02/24 16:26 Oxygen Delivery Room Air 06/02/24 16:26 Temperature 97.3 F L 06/02/24 16:26 Pulse Rate 72 06/02/24 21:01 Respiratory Rate 15 06/02/24 21:01 Blood Pressure 135/94 H 06/02/24 21:01 Pulse Oximetry 100 06/02/24 21:01 Oxygen Delivery Room Air 06/02/24 19:19 <Darlyn Ramirez PA-C - Last Filed: 06/05/24 18:01> Vital Signs Temperature 97.3 F L 06/02/24 16:26 Pulse Rate 88 06/02/24 16:26 Respiratory Rate 18 06/02/24 16:26 Blood Pressure 163/105 H 06/02/24 16:26 Pulse Oximetry 97 06/02/24 16:26 Oxygen Delivery Room Air 06/02/24 16:26 Temperature 97.3 F L 06/02/24 16:26 Pulse Rate 72 06/02/24 21:01 Respiratory Rate 15 06/02/24 21:01 Blood Pressure 135/94 H 06/02/24 21:01 Pulse Oximetry 100 06/02/24 21:01 Oxygen Delivery Room Air 06/02/24 19:19 <Nash Peñaloza MD - Last Filed: 06/03/24 21:46> MDM - Chest Pain MDM Narrative Medical decision making narrative: Plan: Labs, EKG, troponin, blood pressure control, reassess <Nash Peñaloza MD - Last Filed: 06/03/24 21:46> Differential Diagnosis Differential diagnosis: Likely pneumothorax, atypical chest pain, costochondritis and other (ACS, pleurisy, metabolic abnormality, other) <Nash Peñaloza MD - Last Filed: 06/03/24 21:46> Lab Data Result diagrams: 06/02/24 16:35 06/02/24 16:35 <Darlyn Ramirez PA-C - Last Filed: 06/05/24 18:01> Labs: Lab Results 06/02/24 06/02/24 Range/Units 16:35 19:17 WBC 5.4 (4.5-10.0) K/mm3 RBC 4.82 (4.6-6.20) M/mm3 Hgb 14.1 (14.0-18.0) g/dL Hct 42.7 (42.0-52.0) % MCV 88.6 (80-100) fl MCH 29.3 (26-34) pg MCHC 33.0 (32-36) g/dl RDW 12.5 (11.5-14.5) % Plt Count 242 (150-375) k/mm3 MPV 10.2 (7.4-10.4) fl Immature Gran % (Auto) 0.2 (0-0.5) % Neut % (Auto) 54.2 (45.5-73.1) % Lymph % (Auto) 32.7 (18.3-44.2) % Morton % (Auto) 8.3 (2.6-8.5) % Eos % (Auto) 3.1 (0-4.4) % Baso % (Auto) 1.5 H (0.2-1.2) % Lymph # (Auto) 1.77 (0.9-3.2) K/mm3 Morton # (Auto) 0.5 (0.1-0.6) K/mm3 Eos # (Auto) 0.2 (0-0.3) K/mm3 Baso # (Auto) 0.1 (0.0-0.1) K/mm3 Abs Immat Gran (auto) 0.01 (0.00-0.031) K/mm3 Absolute Neuts (auto) 2.9 (1.3-6.7) K/mm3 Absolute Nucleated RBC 0.000 (0.0-0.012) K/mm3 Nucleated RBC % 0.0 (0.0-0.2) % PT 13.6 (11.1-14.7) Seconds INR 1.0 APTT 26.6 (22.3-36.8) Seconds Sodium 138 (137-145) mmol/L Potassium 3.7 (3.4-5.0) mmol/L Chloride 102 (98-107) mmol/L Carbon Dioxide 28 (22-30) mmol/L Anion Gap 8 (4-12) mmol/L BUN 13 D (9-20) mg/dL Creatinine 0.93 (0.7-1.3) mg/dL Estim Creat Clear Calc 66 ml/min Estimated GFR > 60 (59 - ) Glucose 89 (65-110) mg/dL Calcium 8.7 (8.4-10.2) mg/dL Total Bilirubin 0.6 (0.2-1.3) mg/dL AST 29 (17-59) U/L ALT 30 (6-50) U/L Alkaline Phosphatase 48 (38-126) U/L Troponin I < 0.012 < 0.012 (0.000-0.034) ng/mL Total Protein 7.0 (6.3-8.2) g/dL Albumin 4.4 (3.5-5.1) g/dL Lipase 217 (23-300) U/L <Darlyn Ramirez PA-C - Last Filed: 06/05/24 18:01> Lab Results 06/02/24 06/02/24 Range/Units 16:35 19:17 WBC 5.4 (4.5-10.0) K/mm3 RBC 4.82 (4.6-6.20) M/mm3 Hgb 14.1 (14.0-18.0) g/dL Hct 42.7 (42.0-52.0) % MCV 88.6 (80-100) fl MCH 29.3 (26-34) pg MCHC 33.0 (32-36) g/dl RDW 12.5 (11.5-14.5) % Plt Count 242 (150-375) k/mm3 MPV 10.2 (7.4-10.4) fl Immature Gran % (Auto) 0.2 (0-0.5) % Neut % (Auto) 54.2 (45.5-73.1) % Lymph % (Auto) 32.7 (18.3-44.2) % Morton % (Auto) 8.3 (2.6-8.5) % Eos % (Auto) 3.1 (0-4.4) % Baso % (Auto) 1.5 H (0.2-1.2) % Lymph # (Auto) 1.77 (0.9-3.2) K/mm3 Morton # (Auto) 0.5 (0.1-0.6) K/mm3 Eos # (Auto) 0.2 (0-0.3) K/mm3 Baso # (Auto) 0.1 (0.0-0.1) K/mm3 Abs Immat Gran (auto) 0.01 (0.00-0.031) K/mm3 Absolute Neuts (auto) 2.9 (1.3-6.7) K/mm3 Absolute Nucleated RBC 0.000 (0.0-0.012) K/mm3 Nucleated RBC % 0.0 (0.0-0.2) % PT 13.6 (11.1-14.7) Seconds INR 1.0 APTT 26.6 (22.3-36.8) Seconds Sodium 138 (137-145) mmol/L Potassium 3.7 (3.4-5.0) mmol/L Chloride 102 (98-107) mmol/L Carbon Dioxide 28 (22-30) mmol/L Anion Gap 8 (4-12) mmol/L BUN 13 D (9-20) mg/dL Creatinine 0.93 (0.7-1.3) mg/dL Estim Creat Clear Calc 66 ml/min Estimated GFR > 60 (59 - ) Glucose 89 (65-110) mg/dL Calcium 8.7 (8.4-10.2) mg/dL Total Bilirubin 0.6 (0.2-1.3) mg/dL AST 29 (17-59) U/L ALT 30 (6-50) U/L Alkaline Phosphatase 48 (38-126) U/L Troponin I < 0.012 < 0.012 (0.000-0.034) ng/mL Total Protein 7.0 (6.3-8.2) g/dL Albumin 4.4 (3.5-5.1) g/dL Lipase 217 (23-300) U/L <Nash Peñaloza MD - Last Filed: 06/03/24 21:46> Imaging Data Radiologist's impression: ITS Impressions Head CT 06/02/24 17:43 Impression: No acute intracranial hemorrhage or suspicious mass effect. Chest X-Ray 06/02/24 17:46 IMPRESSION: No focal infiltrate or effusion. <Darlyn Ramirez PA-C - Last Filed: 06/05/24 18:01> ECG Data EKG #1: Attestation: I personally reviewed and interpreted this ECG as follows: <Nash Peñaloza MD - Last Filed: 06/03/24 21:46> ECG completion date: 06/02/24 <Nash Peñaloza MD - Last Filed: 06/03/24 21:46> ECG completion time: 16:29 <Nash Peñaloza MD - Last Filed: 06/03/24 21:46> Prior ECG tracings: available for review <Nahs Peñaloza MD - Last Filed: 06/03/24 21:46> Interpretation: Sinus rhythm, rate 87, normal axis, LVH, no ST segment elevations or T-wave inversions concerning for ischemia. Normal intervals with QTc of 448. Compared to previous ECG done in August 2023, there are no significant changes. <Nash Peñaloza MD - Last Filed: 06/03/24 21:46> EKG #2: Attestation: I personally reviewed and interpreted this ECG as follows: <Nash Peñaloza MD - Last Filed: 06/03/24 21:46> ECG completion date: 06/02/24 <Nash Peñaloza MD - Last Filed: 06/03/24 21:46> ECG completion time: 19:16 <Nash Peñaloza MD - Last Filed: 06/03/24 21:46> Prior ECG tracings: available for review <Nash Peñaloza MD - Last Filed: 06/03/24 21:46> Interpretation: Sinus rhythm, rate 65, normal axis, LVH, no ST segment elevations or T-wave inversions concerning for ischemia. Normal intervals with QTc of 422. Compared to previous ECG done earlier today, there are no significant changes. <Nash Peñaloza MD - Last Filed: 06/03/24 21:46> Critical Care Time Critical Care Time Critical Care Time: No <Darlyn Ramirez PA-C - Last Filed: 06/05/24 18:01> Discharge Plan Discharge Clinical Impression: Atypical chest pain, Medication side effects <Darlyn Ramirez PA-C - Last Filed: 06/05/24 18:01> Patient Disposition: Home <Darlyn Ramirez PA-C - Last Filed: 06/05/24 18:01> Condition: Stable <Darlyn Ramirez PA-C - Last Filed: 06/05/24 18:01> Instructions: Antibiotic Form, Chest Pain (ED) <Darlyn Ramirez PA-C - Last Filed: 06/05/24 18:01> Additional Instructions: You were seen in the emergency department. I suspect your elevated blood pressures or side effect of the diclofenac. I recommend holding the medication in speaking with care doctor. If you develop new or worsening chest pain, shortness of breath, loss of consciousness, or if you have other emergent concerns for life, limb, or eyesight, return to the emergency department. <Darlyn Ramirez PA-C - Last Filed: 06/05/24 18:01> Patient Language: Armenian <Darlyn Ramirez PA-C - Last Filed: 06/05/24 18:01> Prescriptions: Held diclofenac sodium 75 mg tablet,delayed release (DR/EC) 75 mg PO BID Qty: 60 5RF Hold Instructions: Resume on 06/25/24. Talk with your primary care doctor before resuming this medication Rx Instructions: Take with food. No Action albuterol sulfate 90 mcg/actuation HFA aerosol inhaler 2 puff inhalation Q4-6H PRN (Reason: shortness of breath or wheezing) Qty: 8.5 4RF tramadol 50 mg tablet 50 mg PO Q8H PRN (Reason: pain) Qty: 30 0RF escitalopram oxalate 10 mg tablet 10 mg PO DAILY Qty: 90 3RF amlodipine 10 mg tablet 10 mg PO DAILY Qty: 90 1RF <Darlyn Ramirez PA-C - Last Filed: 06/05/24 18:01> Follow-up/Referrals: Stanislav Wolf DO [Primary Care Provider] - 1 Week <Darlyn Ramirez PA-C - Last Filed: 06/05/24 18:01> Time of Disposition: 20:59 <Darlyn Ramirez PA-C - Last Filed: 06/05/24 18:01> 20:59 <Nash Peñaloza MD - Last Filed: 06/03/24 21:46>
[2024-06-02 16:55] LABS: Partial Thromboplastin Time 26.6 Seconds (22.3-36.8)
[2024-06-02 17:03] LABS: Troponin I < 0.012 ng/mL (0.000-0.034)
--- OUTSIDE RECORDS SUMMARY | 2024-06-02 17:05 | XMS_ITS | Clinical Summary ---
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 Gender Identity Not on file Sexual Orientation Not on file Obstetrics History Plan of Treatment Health Maintenance Due Date Last Done Comments Colon Cancer Screening-Colonoscopy 1967 Depression Screening 1967 Hepatitis C Screening 1967 Prostate Cancer Screening-PSA 1967 Hepatitis B Screening 1985 Regular Well Visit/Exam 18-64 1985 Pneumococcal vaccine <65 (1 of 2 - PCV) 1986 Zoster Vaccine (1 of 2) 2017 Covid-19 Vaccine (3 - 2024-25 season) 10/27/202310/2020, 06/05/2020 Influenza Vaccine (#1) 2023 DTaP/Tdap/Td Vaccine (2 - Td or Tdap) 10/08/2029 [place] [employer] [place] Care Teams Kiln Stacker Relationship Specialty Start Date End Date Mick Reddy MD [address] [address] PCP - General Internal Medicine 04/27/21
--- OUTSIDE RECORDS SUMMARY | 2024-06-02 17:05 | XMS_ITS | Referral Summary ---
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
--- OUTSIDE RECORDS SUMMARY | 2024-06-02 17:05 | XMS_ITS | Clinical Summary ---
Author Organization [facility] Address [address] [place] [address] Phone Care Team Providers Care Lead Recreation Assistant Name Role Phone Unavailable Primary Care Provider [...] declined 02/13/2019 How often do you attend evangelical or church serv ices? Patient declined 02/13/2019 Do you belong to any clubs o r organizations such as evangelical groups, unions, fraternal or athletic groups, or [...] Comments Blood Pressure 138/79 02/13/2019 12:53 AM LOAN TELLER Pulse 69 02/13/2019 12:53 AM LOAN TELLER Temperature 36.7 C (98 F) 02/13/2019 12:53 AM LOAN TELLER Respiratory Rate 14 02/13/2019 12:53 AM LOAN TELLER Oxygen Saturation 97% 02/13/2019 12:53 AM LOAN TELLER Inhaled Oxygen Concentration - - Weight 74.8 kg (165 lb) 02/13/2019 12:53 AM LOAN TELLER Height 180.3 cm (5' 11 ) 02/13/2019 12:53 AM LOAN TELLER Body Mass Index 23.01 02/13/2019 12:53 AM LOAN TELLER Plan of Treatment Health Maintenance Due Date Last Done Comments DTAP/TDAP/TD VACCINES (1 - Tdap) 1986 HEPATITIS B VACCINES (1 of 3 - 19+ 3-dose series) 1986 COLORECTAL SCREENING 2012 Colorectal Cancer Screening 2012 FIT-DNA Q 3 years 2012 FIT/FOBT Q 1 year 2012 Flex Sig/CT Colonography Q 5 years 2012 ZOSTER VACCINE (1 of 2) 2017 INFLUENZA VACCINE (#1) 2023 PNEUMOCOCCAL VACCINE 0-49 YEARS Aged Out No longer eligible based on patient's age to complete this topic
--- NOTE | 2024-06-02 19:10 | ECG_ITS ---
Test Date: 2024-06-02 19:16:21 Measurements Intervals [place] Rate: 65 P: -66 SC: 92 QRS: 53 QRSD: 94 T: 30 QT: 405 QTc: 422 Interpretive Statements ECTOPIC ATRIAL RHYTHM VOLTAGE CRITERIA FOR LVH BASELINE ARTIFACT- I, II, III, AVR, AVL, AVF ABNORMAL ECG Compared to ECG 06/02/2024 16:29:09 NO SIGNIFICANT CHANGE Electronically Signed On 06-02-2024 19:59:55 CDT by Jhonny Engel D.O.
--- OUTSIDE RECORDS SUMMARY | 2024-06-02 19:18 | XMS_ITS | Clinical Summary ---
Author Organization [facility] Address [address] [place] [address] Phone Care Team Providers Care Mix House Tender Name Role Phone Unavailable Primary Care Provider [...] declined 02/13/2019 How often do you attend yazidi or adventist serv ices? Patient declined 02/13/2019 Do you belong to any clubs o r organizations such as yazidi groups, unions, fraternal or athletic groups, or [...] Comments Blood Pressure 138/79 02/13/2019 12:53 AM YOUTH DIRECTOR Pulse 69 02/13/2019 12:53 AM YOUTH DIRECTOR Temperature 36.7 C (98 F) 02/13/2019 12:53 AM YOUTH DIRECTOR Respiratory Rate 14 02/13/2019 12:53 AM YOUTH DIRECTOR Oxygen Saturation 97% 02/13/2019 12:53 AM YOUTH DIRECTOR Inhaled Oxygen Concentration - - Weight 74.8 kg (165 lb) 02/13/2019 12:53 AM YOUTH DIRECTOR Height 180.3 cm (5' 11 ) 02/13/2019 12:53 AM YOUTH DIRECTOR Body Mass Index 23.01 02/13/2019 12:53 AM YOUTH DIRECTOR Plan of Treatment Health Maintenance Due Date [...]
--- OUTSIDE RECORDS SUMMARY | 2024-06-02 19:18 | XMS_ITS | Referral Summary ---
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
--- OUTSIDE RECORDS SUMMARY | 2024-06-02 19:18 | XMS_ITS | Clinical Summary ---
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
[2024-06-02 19:19] VITALS: BP 132/92; PULSE 73; RESP 17; O2SAT 98; O2SAT 99
[2024-06-02 19:31] VITALS: BP 144/97; PULSE 73; RESP 12; O2SAT 100
[2024-06-02 19:43] VITALS: PULSE 64; RESP 15; O2SAT 98
[2024-06-02 19:48] LABS: Troponin I < 0.012 ng/mL (0.000-0.034)
[2024-06-02 20:18] VITALS: PULSE 75; RESP 16; O2SAT 98
[2024-06-02 21:01] VITALS: BP 135/94; PULSE 72; RESP 15; O2SAT 100
== END 2024-06-02 21:10 | disposition home or self-care (01) ==
PROVIDERS: Emergency Medicine; Emergency Provider Preventive Medicine Aerospace Medicine; PCP Internal Medicine
DX: R07.89 Other chest pain (principal); T39.395A Adverse effect of other nonsteroidal anti-inflammatory drugs [NSAID], initial encounter; M19.90 Unspecified osteoarthritis, unspecified site
CPT/HCPCS: 36415; 70450; 71046; 80053; 83690; 84484; 85025; 85610; 85730; 93005; 99284

== ENCOUNTER 2024-08-07 07:49 | Outpatient (CLI) | payer BC, SELFPAY ==
--- OUTSIDE RECORDS SUMMARY | 2024-08-07 07:55 | XMS_ITS | Clinical Summary ---
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
--- OUTSIDE RECORDS SUMMARY | 2024-08-07 07:55 | XMS_ITS | Referral Summary ---
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
--- OUTSIDE RECORDS SUMMARY | 2024-08-07 07:55 | XMS_ITS | Clinical Summary ---
Author Organization [facility] Address [address] [place] [id number] Phone Care Team Providers Care Gluer Name Role Phone Unavailable Primary Care Provider [...] declined 02/13/2019 How often do you attend roman catholic or roman catholic serv ices? 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 Pulse 69 02/13/2019 12:53 AM SAFETY ADVISOR Temperature 36.7 C (98 F) 02/13/2019 12:53 AM SAFETY ADVISOR Respiratory Rate 14 02/13/2019 12:53 AM SAFETY ADVISOR Oxygen Saturation 97% 02/13/2019 12:53 AM SAFETY ADVISOR Inhaled Oxygen Concentration - - Weight 74.8 kg (165 lb) 02/13/2019 12:53 AM SAFETY ADVISOR Height 180.3 cm (5' 11) 02/13/2019 12:53 AM SAFETY ADVISOR Body Mass Index 23.01 02/13/2019 12:53 AM SAFETY ADVISOR Plan of Treatment Health Maintenance Due Date Last Done Comments DTAP/TDAP/TD VACCINES (1 - Tdap) 1986 HEPATITIS B VACCINES (1 of 3 - 19+ 3-dose series) 03/28 COLORECTAL SCREENING 2012 Colorectal Cancer Screening 2012 FIT-DNA Q 3 years 2012 FIT/FOBT Q 1 year 2012 Flex Sig/CT Colonography Q 5 years 2012 ZOSTER VACCINE (1 of 2) 2017 INFLUENZA VACCINE (#1) 2023
[2024-08-07 08:33] LABS: Rheumatoid Factor < 12.0 IU/ML (<12)
[2024-08-14 00:03] LABS: Renin 2.32 ng/mL/h (0.25-5.82)
== END 2024-08-07 07:50 | disposition home or self-care (01) ==
LOC: ANHLAB 07:51
PROVIDERS: PCP Internal Medicine; Visit Provider Internal Medicine
DX: M19.041 Primary osteoarthritis, right hand (principal); M19.042 Primary osteoarthritis, left hand; I10 Essential (primary) hypertension
CPT/HCPCS: 36415; 82088; 84244; 86038; 86039; 86430